=== PATIENT | male | born 1950 | race Caucasian/White ===

== ENCOUNTER → 2025-07-10 13:53 | Outpatient (BNVA) | payer MEDICARE, BC, SELFPAY | PROVIDERS: PCP Emergency Medicine Undersea and Hyperbaric Medicine; Referring Provider Family Medicine; Visit Provider Podiatrist | DX: L60.3 Nail dystrophy (principal); B35.1 Tinea unguium; E11.42 Type 2 diabetes mellitus with diabetic polyneuropathy; M20.41 Other hammer toe(s) (acquired), right foot; M20.42 Other hammer toe(s) (acquired), left foot; J44.9 Chronic obstructive pulmonary disease, unspecified; E11.59 Type 2 diabetes mellitus with other circulatory complications; I10 Essential (primary) hypertension; R09.89 Other specified symptoms and signs involving the circulatory and respiratory systems; L60.2 Onychogryphosis; R20.8 Other disturbances of skin sensation | CPT/HCPCS: 11719; 11720 ==